=== PATIENT | male | born 1950 | race Caucasian/White ===

== ENCOUNTER 2020-06-17 15:40 | Inpatient (IN) | payer MEDICARE ==
[~2020-06-17] VITALS: Ht 182.9 cm; Wt 117.9 kg
[2020-06-17 16:34] LABS: HEMOGLOBIN 15.7 gm/dl (14.0-17.5); RED BLOOD COUNT 4.75 M/UL (4.20-5.50); WHITE BLOOD COUNT 9.8 K/UL (4.5-11.0)
[2020-06-17 16:56] LABS: BUN/CREATININE RATIO 20 (0-10)
[2020-06-17] MEDS ORDERED: BYSTOLIC10 MG PO (21:33)
[2020-06-17] MEDS ORDERED: SULFAMETHOXAZO1 EACH PO (21:34)
[2020-06-17] MEDS ORDERED: TRAZODONE HCL100 MG PO (21:34)
[2020-06-17] MEDS ORDERED: ASPIRIN EC81 MG PO (21:35)
[2020-06-17] MEDS ORDERED: ATORVASTATIN CA40 MG PO (21:35)
[2020-06-17] MEDS ORDERED: ALFUZOSIN HCL E10 MG PO (21:36)
[2020-06-17] MEDS ORDERED: URSODIOL300 MG PO (21:37)
[2020-06-17] MEDS ORDERED: AVODART 0.5 MG0.5 MG PO (21:37)
[2020-06-17] MEDS ORDERED: AZULFIDINE 500500 MG PO (21:39)
[2020-06-17] MEDS ORDERED: CLOPIDOGREL75 MG PO (21:41)
[2020-06-18 03:41] LABS: WHITE BLOOD COUNT 7.8 K/UL (4.5-11.0)
[2020-06-18 03:44] LABS: RED BLOOD COUNT 4.16 M/UL (4.20-5.50)
[2020-06-18 03:45] LABS: HEMOGLOBIN 13.4 gm/dl (14.0-17.5)
[2020-06-18 04:12] LABS: BUN/CREATININE RATIO 26 (0-10)
[2020-06-19 04:40] LABS: HEMOGLOBIN 13.4 gm/dl (14.0-17.5); RED BLOOD COUNT 4.13 M/UL (4.20-5.50); WHITE BLOOD COUNT 8.3 K/UL (4.5-11.0)
[2020-06-19 05:04] LABS: BUN/CREATININE RATIO 32 (0-10)
[2020-06-20 03:30] LABS: HEMOGLOBIN 13.7 gm/dl (14.0-17.5); RED BLOOD COUNT 4.18 M/UL (4.20-5.50)
[2020-06-20 03:51] LABS: BUN/CREATININE RATIO 25 (0-10)
[2020-06-20] MEDS ORDERED: BETAPACE 80MG T80 MG PO (10:06)
[2020-06-20] MEDS ORDERED: ISOSORBIDE MONO30 MG PO (10:06)
== END 2020-06-20 11:17 | disposition home or self-care (01) | DRG 246 ==
LOC: ER1 15:40 → CDU 18:34 → M/S 18:34 → PROG CARE 18:34 → M/S 21:20 → PROG CARE 06-19 11:47
PROVIDERS: Family Medicine; Internal Medicine; Physician Assistant; ADMIT Internal Medicine
PROC: B24BZZZ Ultrasonography of Heart with Aorta (ICD-10-PCS; 2020-06-18)
PROC: 027034Z Dilation of Coronary Artery, One Artery with Drug-eluting Intraluminal Device, Percutaneous Approach (ICD-10-PCS; principal; 2020-06-19)
PROC: 4A023N7 Measurement of Cardiac Sampling and Pressure, Left Heart, Percutaneous Approach (ICD-10-PCS; 2020-06-19)
PROC: B211YZZ Fluoroscopy of Multiple Coronary Arteries using Other Contrast (ICD-10-PCS; 2020-06-19)
PROC: 4A0335C Measurement of Arterial Flow, Coronary, Percutaneous Approach (ICD-10-PCS; 2020-06-19)
DX: I47.1 Supraventricular tachycardia (principal); I50.33 Acute on chronic diastolic (congestive) heart failure; K51.90 Ulcerative colitis, unspecified, without complications; Z20.822 Contact with and (suspected) exposure to COVID-19; I11.0 Hypertensive heart disease with heart failure; I25.119 Atherosclerotic heart disease of native coronary artery with unspecified angina pectoris; R79.89 Other specified abnormal findings of blood chemistry; E78.5 Hyperlipidemia, unspecified; K76.0 Fatty (change of) liver, not elsewhere classified; N40.0 Benign prostatic hyperplasia without lower urinary tract symptoms; Z90.49 Acquired absence of other specified parts of digestive tract; Z79.02 Long term (current) use of antithrombotics/antiplatelets; Z95.5 Presence of coronary angioplasty implant and graft; Z79.82 Long term (current) use of aspirin; Z79.899 Other long term (current) drug therapy; Z80.0 Family history of malignant neoplasm of digestive organs; Z80.3 Family history of malignant neoplasm of breast
CPT/HCPCS: 36415; 71045; 78452; 80048; 80053; 82550; 82553; 82607; 82746; 83735; 83874; 83880; 84439; 84443; 84484; 85025; 85347; 85610; 85730; 87635; 93005; 93017; 94640; 94760; 99152; 99153; 99285; A9502; C1725; C1769; C1874; C1887; C1894; C9600; J0153; J1644; J2250; J2785; J3010; J7040; Q9967